=== PATIENT | male | born 1935 | race Caucasian/White ===

== ENCOUNTER 2017-11-24 12:34 | Emergency (ER) | payer OTHER ==
[2017-11-24 13:42] LABS: Absolute Lymphocytes (CBC) 2.1 K/uL (0.7-4.9); Absolute Neutrophil 4.9 K/uL (1.8-8.0); Eosinophils % 2.3 % (0-4.4); Hematocrit 44.4 % (39.6-49.0); Lymphocytes % 25.2 % (15.3-44.8); MCH 29.6 pg (27.0-35.0); MCV 89.8 fL (80-100); MPV 7.9 fL (7.6-11.3); Monocytes % 12.1 % (3.3-12.3); RBC Red Blood Cell Count 4.95 M/uL (4.33-5.43)
[2017-11-24 13:45] LABS: Protime INR 0.98
[2017-11-24 13:56] LABS: CKMB Creatine Kinase MB 2.7 ng/mL (0.3-3.6); Magnesium 2.2 mg/dL (1.8-2.4)
--- NOTE | 2017-11-24 14:03 | RAD REPORT ---
EXAM DESCRIPTION: RAD - Chest Single View - 11/24/2017 1:45 pm CLINICAL HISTORY: Chest pain COMPARISON: None. TECHNIQUE: AP portable chest image was obtained 1334 hours . FINDINGS: No failure, infiltrate or mass. Granulomatous calcifications are present. Heart and vascul ature are normal. No measurable pleural effusion and no pneumothorax. No acute bone finding identifia ble. Shoulder joint degenerative change on the right present and likely reflects chronic rotator cuff tear. No acute aortic findings suspected. IMPRESSION: No acute cardiopulmonary process. Right shoulder degenerative change with probable chronic rotator cuff tear.
--- NOTE | 2017-11-24 14:32 | ER ---
Nurse's Notes [facility] Name: Alondra Rowley Age: 82 yrs Sex: Male : 1935 Arrival Date: 11/24/2017 Time: 12:36 Bed 25 Private MD: JASON GOMEZ Diagnosis: Bradycardia, unspecified Presentation: 11/24 12:53 Presenting complaint: Patient states: I have been having dizzy spells and trouble la1 walking for the last 3 days and [facility] and told me my HR was 41 and I should come be evaluated by the ER. Transition of care: patient was not received from another setting of care. Onset of symptoms was November 24, 2017. Risk Assessment: Do you want to hurt yourself or someone else? Patient reports no desire to harm self or others. Initial Sepsis Screen: Does the patient meet any 2 criteria? No. Patient's initial sepsis screen is negative. Does the patient have a suspected source of infection? No. Patient's initial sepsis screen is negative. Care prior to arrival: None. 12:53 Method Of Arrival: Wheelchair la1 12:53 Acuity: HILARY 3 la1 Historical: - Allergies: 12:55 Iodine; la1 12:55 Wasps; la1 - Home Meds: 13:15 acyclovir 200 mg Oral cap 2 caps 2 times per day [Active]; cyanocobalamin (vitamin aj B-12) 1,000 mcg oral tab daily [Active]; diclofenac sodium 75 mg oral TbEC 1 tab 2 times per day [Active]; gabapentin 400 mg oral cap 1 cap 3 times per day [Active]; triamterene-hydrochlorothiazid 37.5-25 mg Oral tab 1 tab once daily [Active]; levothyroxine 100 mcg tab 1 tab once daily [Active]; lisinopril 10 mg Oral tab 1 tab once daily [Active]; sildenafil oral 50mg oral 1 tab once daily [Active]; - PMHx: 12:55 Hypertension; la1 13:15 Hyperlipidemia; aj - Immunization history:: Adult Immunizations up to date. - Social history:: Smoking status: Patient/guardian denies using tobacco. - Ebola Screening: : No symptoms or risks identified at this time. Screenin:10 Abuse screen: Denies threats or abuse. Denies injuries from another. Nutritional aj screening: No deficits noted. Tuberculosis screening: No symptoms or risk factors identified. Fall Risk None identified. Assessment: 13:10 General: Appears in no apparent distress. comfortable, Behavior is calm, cooperative, aj appropriate for age. Pain: Denies pain. Neuro: Level of Consciousness is awake, alert, obeys commands, Oriented to person, place, time, situation, Appropriate for age. Neuro: Reports dizziness, since for 3 days. Cardiovascular: Reports lightheadedness, Denies chest pain, Capillary refill < 3 seconds in bilateral fingers Patient's skin is warm and dry. Rhythm is sinus bradycardia. Respiratory: Airway is patent Respiratory effort is even, unlabored, Respiratory pattern is regular, symmetrical. Derm: Skin is intact, is healthy with good turgor, Skin is pink, warm \T\ dry. normal. 14:36 Reassessment: Patient appears in no apparent distress at this time. No changes from aj previously documented assessment. Patient and/or family updated on plan of care and expected duration. Pain level reassessed. Patient is alert, oriented x 3, equal unlabored respirations, skin warm/dry/pink. Denies dizziness Patient denies pain at this time. Vital Signs: 12:55 BP 170 / 85; Pulse 49; Resp 16; Temp 97.3(TE); Pulse Ox 99% on R/A; Weight 103.42 kg; la1 Height 6 ft. 1 in. (185.42 cm); 13:42 BP 123 / 88; Pulse 44; Resp 17; Pulse Ox 98% on R/A; aj 14:24 BP 123 / 52 Supine; Pulse 52; Resp 16; Pulse Ox 97% on R/A; tm3 14:24 BP 141 / 76 Sitting; Pulse 46; Resp 16; Pulse Ox 98% on R/A; tm3 14:24 BP 125 / 73 Standing; Pulse 56; Resp 18; Pulse Ox 98% on R/A; tm3 12:55 Body Mass Index 30.08 (103.42 kg, 185.42 cm) la1 ED Course: 12:36 Patient arrived in ED. mr 12:37 [facility], [facility] is Private Physician. mr 12:54 Triage completed. la1 12:55 Arm band placed on right wrist. EKG completed in triage. Results shown to . la1 12:56 Viviane Andino, RN is Primary Nurse. aj 13:08 EKG done, by automotive tire technician. dt2 13:13 Arielle Leong FNP-C is [facility]. kb 13:13 Joe Hogan MD is Attending Physician. kb 13:15 Patient has correct armband on for positive identification. Placed in gown. Bed in low aj position. Call light in reach. Side rails up X 1. Adult w/ patient. stone carriage operator on. Pulse ox on. NIBP on. 13:16 Inserted saline lock: 20 gauge in left forearm, using aseptic technique. Blood aj collected. 13:45 XRAY Chest (1 view) In Process Unspecified. EDMS 14:36 No provider procedures requiring assistance completed. IV discontinued, bleeding aj controlled, No redness/swelling at site. Pressure dressing applied. Administered Medications: No medications were administered Outcome: 14:31 Discharge ordered by MD. kb 14:37 Discharged to home ambulatory, with family. aj 14:37 Condition: good 14:37 Discharge instructions given to patient, family, Instructed on discharge instructions, follow up and referral plans. Demonstrated understanding of instructions, follow-up care. 14:38 Patient left the ED. aj Signatures: Dispatcher [employer] EDTN Arielle Leong FNP-C FNP-Wil Wolfe tm3 Viviane Andino, RN Ethel Sanchez Lee, RN RN la1 Ronit Haley dt2
--- NOTE | 2017-11-24 14:32 | EDPHYS ---
Physician Documentation [facility] Name: Alondra Rowley Age: 82 yrs Sex: Male : 1935 Arrival Date: 11/24/2017 Time: 12:36 Bed 25 Private MD: JASON, [place] ED Physician Joe Hogan HPI: 11/24 13:39 This 82 yrs old Male presents to ER via Wheelchair with complaints of kb Irregular heart rate. 13:39 The patient presents with dizziness. Onset: The symptoms/episode began/occurred 2 kb day(s) ago. Context: occurred at home, occurred while the patient was after taking a medication, just prior to the episode the patient experienced no apparent symptoms. Modifying factors: The symptoms are alleviated by nothing, the symptoms are aggravated by nothing. Associated signs and symptoms: The patient has no apparent associated signs or symptoms. Severity of symptoms: At their worst the symptoms were moderate in the emergency department the symptoms have resolved. Patient's baseline: Neuro: alert and fully oriented, Motor: no deficits, Ambulation: walks without assistance, Speech: normal. The patient has not experienced similar symptoms in the past. The patient has been recently seen by a physician: in [place] clinic, with similar presenting complaints, and was sent to the [facility] Emergency Department for further evaluation. Pt states he got dizzy 2 days ago after taking his blood pressure medication. States he stopped taking one of them and hasn't had dizziness since then (yesterday or today.) [facility] and they told him he needed to be seen in the ER because his heart rate on EKG was 41. Denies chest pain, palpitations, shortness of breath. States he feels fine now, no longer feels jittery. . Historical: - Allergies: 12:55 Iodine; la1 12:55 Wasps; la1 - Home Meds: 13:15 acyclovir 200 mg Oral cap 2 caps 2 times per day [Active]; cyanocobalamin (vitamin aj B-12) 1,000 mcg oral tab daily [Active]; diclofenac sodium 75 mg oral TbEC 1 tab 2 times per day [Active]; gabapentin 400 mg oral cap 1 cap 3 times per day [Active]; triamterene-hydrochlorothiazid 37.5-25 mg Oral tab 1 tab once daily [Active]; levothyroxine 100 mcg tab 1 tab once daily [Active]; lisinopril 10 mg Oral tab 1 tab once daily [Active]; sildenafil oral 50mg oral 1 tab once daily [Active]; - PMHx: 12:55 Hypertension; la1 13:15 Hyperlipidemia; aj - Immunization history:: Adult Immunizations up to date. - Social history:: Smoking status: Patient/guardian denies using tobacco. - Ebola Screening: : No symptoms or risks identified at this time. ROS: 13:36 Constitutional: Negative for fever, chills, and weight loss, Eyes: Negative for injury, kb pain, redness, and discharge, ENT: Negative for injury, pain, and discharge, Neck: Negative for injury, pain, and swelling, Cardiovascular: Negative for chest pain, palpitations, and edema, Respiratory: Negative for shortness of breath, cough, wheezing, and pleuritic chest pain, Abdomen/GI: Negative for abdominal pain, nausea, vomiting, diarrhea, and constipation, Back: Negative for injury and pain, MS/Extremity: Negative for injury and deformity, Skin: Negative for injury, rash, and discoloration, Neuro: Negative for headache, weakness, numbness, tingling, and seizure. Exam: 13:36 Constitutional: This is a well developed, well nourished patient who is awake, alert, kb and in no acute distress. Head/Face: Normocephalic, atraumatic. Chest/axilla: Normal chest wall appearance and motion. Nontender with no deformity. No lesions are appreciated. Respiratory: Lungs have equal breath sounds bilaterally, clear to auscultation and percussion. No rales, rhonchi or wheezes noted. No increased work of breathing, no retractions or nasal flaring. Abdomen/GI: Soft, non-tender, with normal bowel sounds. No distension or tympany. No guarding or rebound. No evidence of tenderness throughout. Skin: Warm, dry with normal turgor. Normal color with no rashes, no lesions, and no evidence of cellulitis. MS/ Extremity: Pulses equal, no cyanosis. Neurovascular intact. Full, normal range of motion. Neuro: Awake and alert, GCS 15, oriented to person, place, time, and situation. Cranial nerves II-XII grossly intact. Motor strength 5/5 in all extremities. Sensory grossly intact. Cerebellar exam normal. Normal gait. 13:36 Cardiovascular: Rate: bradycardic, actual rate is 49 bpm, Rhythm: regular, Pulses: no pulse deficits are appreciated, Heart sounds: normal, normal S1and S2. Vital Signs: 12:55 BP 170 / 85; Pulse 49; Resp 16; Temp 97.3(TE); Pulse Ox 99% on R/A; Weight 103.42 kg; la1 Height 6 ft. 1 in. (185.42 cm); 13:42 BP 123 / 88; Pulse 44; Resp 17; Pulse Ox 98% on R/A; aj 14:24 BP 123 / 52 Supine; Pulse 52; Resp 16; Pulse Ox 97% on R/A; tm3 14:24 BP 141 / 76 Sitting; Pulse 46; Resp 16; Pulse Ox 98% on R/A; tm3 14:24 BP 125 / 73 Standing; Pulse 56; Resp 18; Pulse Ox 98% on R/A; tm3 12:55 Body Mass Index 30.08 (103.42 kg, 185.42 cm) la1 MDM: 13:13 Patient medically screened. kb 13:36 Data reviewed: vital signs, nurses notes. Data interpreted: Pulse oximetry: on room air kb is 99 %. Interpretation: normal. 14:15 Counseling: I had a detailed discussion with the patient and/or guardian regarding: the kb historical points, exam findings, and any diagnostic results supporting the discharge/admit diagnosis, lab results, radiology results, the need for outpatient follow up, a pharmacist assistant, a family practitioner, to return to the emergency department if symptoms worsen or persist or if there are any questions or concerns that arise at home. Special discussion: Based on the patient's history, exam, and Dx evaluation, there is no indication for emergent intervention or inpatient Tx. It is understood by the patient/guardian that if the Sx's persist or worsen they need to return immediately for re-evaluation. ED course: Discussed pt condition, history and diagnostic studies with ERP. Pt is asymptomatic of heart rate, stable blood pressure. Pt would like to go home. Will follow up with pharmacist assistant. Educated to return for chest pain, shortness of breath, palpitations, weakness, dizziness, lightheadedness, or any other concerns. . 11/24 13:15 Order name: Basic Metabolic Panel; Complete Time: 13:57 kb 11/24 13:15 Order name: CBC with Diff; Complete Time: 13:43 kb 11/24 13:15 Order name: Ckmb; Complete Time: 13:57 kb 11/24 13:15 Order name: CPK; Complete Time: 13:57 kb 11/24 13:15 Order name: Magnesium; Complete Time: 13:57 kb 11/24 13:15 Order name: NT PRO-BNP; Complete Time: 13:57 kb 11/24 13:15 Order name: PT-INR; Complete Time: 13:57 kb 11/24 13:15 Order name: Ptt, Activated; Complete Time: 13:57 kb 11/24 13:15 Order name: Troponin (emerg Dept Use Only); Complete Time: 14:07 kb 11/24 13:15 Order name: XRAY Chest (1 view); Complete Time: 14:07 kb 11/24 13:15 Order name: EKG; Complete Time: 13:15 kb 11/24 13:15 Order name: Cardiac monitoring; Complete Time: 13:16 kb 11/24 14:04 Order name: Urine Dipstick--Ancillary (enter results) ag 11/24 14:05 Order name: Urine Dipstick-Ancillary EDMS 11/24 13:15 Order name: EKG - Nurse/Tech; Complete Time: 13:16 kb 11/24 13:15 Order name: IV Saline Lock; Complete Time: 13:16 kb 11/24 13:15 Order name: Labs collected and sent; Complete Time: 13:16 kb 11/24 13:15 Order name: O2 Per Protocol; Complete Time: 13:16 kb 11/24 13:15 Order name: O2 Sat Monitoring; Complete Time: 13:16 kb 11/24 13:15 Order name: Urine Dipstick-Ancillary (obtain specimen); Complete Time: 14:33 kb 11/24 14:11 Order name: Orthostatics; Complete Time: 14:24 kb Administered Medications: No medications were administered Disposition: 11/24/17 14:31 Discharged to Home. Impression: Bradycardia, unspecified. - Condition is Stable. - Discharge Instructions: Bradycardia, Adult. - Medication Reconciliation Form, Thank You Letter, Antibiotic Education, Prescription Opioid Use form. - Follow up: Emergency Department; When: As needed; Reason: Worsening of condition. Follow up: Private Physician; When: 2 - 3 days; Reason: Recheck today's complaints, Continuance of care, Re-evaluation by your physician. Addendum: 11/25/2017 16:07 Co-signature as Attending Physician, Joe Hogan MD. g s Signatures: Dispatcher [employer] EDMS SaloTitoArielle, SHEETFED PRESS OPERATOR-C SHEETFED PRESS OPERATOR-Ckb Viviane Andino RN Emerson Douglas RN RN la1 Joe Hogan MD MD Corrections: (The following items were deleted from the chart) 11/24 14:38 14:31 11/24/2017 14:31 Discharged to Home. Impression: Bradycardia, unspecified. aj Condition is Stable. Forms are Medication Reconciliation Form, Thank You Letter, Antibiotic Education, Prescription Opioid Use. Follow up: Emergency Department; When: As needed; Reason: Worsening of condition. Follow up: Private Physician; When: 2 - 3 days; Reason: Recheck today's complaints, Continuance of care, Re-evaluation by your physician. kb
[2017-11-24 14:47] LABS: Urine Blood TRACE (NEG); Urine Glucose NEGATIVE (NEG); Urine Protein NEGATIVE (NEG); Urine Specific Gravity 1.015 (1.005-1.030)
--- NOTE | 2017-11-24 17:12 | EKG ---
Test Date: 2017-11-24 Test Time: 12:50:04 Framing Mill Operator Helper: TAY MEASUREMENT RESULTS: Intervals: Rate: 45 AZ: 232 QRSD: 86 QT: 432 QTc: 373 Vendor: P: 68 AZ: 232 QRS: 19 T: 78 INTERPRETIVE STATEMENTS: Marked sinus bradycardia with 1st degree AV block Abnormal ECG No previous ECG available for comparison Electronically Signed On 11-24-17 17:10:47 CDT by Jason Thao
== END 2017-11-24 14:38 | disposition home or self-care (01) ==
LOC: ER 12:34
DX: R00.1 Bradycardia, unspecified (principal); I10 Essential (primary) hypertension; E78.5 Hyperlipidemia, unspecified; Z91.038 Other insect allergy status; Z91.048 Other nonmedicinal substance allergy status
CPT/HCPCS: 36415; 71045; 80048; 81003; 82550; 82553; 83735; 83880; 84484; 85025; 85610; 85730; 93005; 99284

== ENCOUNTER 2017-11-27 09:38 | Emergency (ER) | payer OTHER ==
[2017-11-27] MEDS ORDERED: NA CHLORIDE 0.9% 1,000 ML ONE (10:45)
[2017-11-27] MEDS ORDERED: ASPIRIN 81 MG CHEWABLE TABLET ONE (10:45)
[2017-11-27 11:05] LABS: Protime INR 0.97
[2017-11-27 11:09] LABS: Absolute Lymphocytes (CBC) 1.5 K/uL (0.7-4.9); Absolute Monocytes 0.8 K/uL (0.1-1.3); Absolute Neutrophil 4.8 K/uL (1.8-8.0); Basophils % 1.2 % (0-1.3); Eosinophils % 2.1 % (0-4.4); Hematocrit 43.4 % (39.6-49.0); Lymphocytes % 20.2 % (15.3-44.8); MCH 30.3 pg (27.0-35.0); MCV 89.4 fL (80-100); MPV 8.3 fL (7.6-11.3); Monocytes % 11.3 % (3.3-12.3); RBC Red Blood Cell Count 4.86 M/uL (4.33-5.43)
[2017-11-27 11:25] LABS: Albumin 3.8 g/dL (3.4-5.0); Bilirubin Direct 0.1 mg/dL (0-0.2); Bilirubin Total 0.5 mg/dL (0.2-1.0); CKMB Creatine Kinase MB 2.6 ng/mL (0.3-3.6); Potassium 3.8 mmol/L (3.5-5.1); Thyroid Stimulating Hormone 3.49 uIU/mL (0.36-3.74)
--- NOTE | 2017-11-27 11:28 | EKG ---
Test Date: 2017-11-27 Test Time: 09:47:28 Human Resource Officer: TAY MEASUREMENT RESULTS: Intervals: Rate: 52 OK: 220 QRSD: 86 QT: 424 QTc: 394 Edna: P: 67 OK: 220 QRS: 0 T: 75 INTERPRETIVE STATEMENTS: Sinus bradycardia with 1st degree AV block Inferior infarct, age undetermined Abnormal ECG Compared to ECG 11/24/2017 12:50:04 Myocardial infarct finding now present Electronically Signed On 11-27-17 11:28:05 CDT by Travis Beavers
--- NOTE | 2017-11-27 11:32 | RAD REPORT ---
EXAM DESCRIPTION: RAD - Chest Single View - 11/27/2017 11:04 am CLINICAL HISTORY: CHEST PAIN Chest pain. COMPARISON: Chest Single View dated 11/24/2017 FINDINGS: Portable technique limits examination quality. Calcified granulomas are present left mid lung. The lungs are otherwise clear. The heart is normal in size. No displaced fractures. IMPRESSION: No acute intrathoracic process suspected.
[2017-11-27 12:10] LABS: Urine Blood NEGATIVE (NEG); Urine Glucose NEGATIVE (NEG); Urine Protein NEGATIVE (NEG)
--- NOTE | 2017-11-27 12:54 | EDPHYS ---
Physician Documentation [facility] Name: Alondra Rowley Age: 82 yrs Sex: Male : 1935 Arrival Date: 11/27/2017 Time: 09:42 Bed 23 Private MD: [place], [place] ED Physician Vincenzo Mcmahon HPI: 11/27 10:31 This 82 yrs old Male presents to ER via Ambulatory with complaints of samreen Weakness, Dizziness. 10:31 The patient presents to the emergency department with weakness of the. samreen Historical: - Allergies: 09:47 Iodine; ch 09:47 Wasps; ch - Home Meds: 09:47 acyclovir 200 mg Oral cap 2 caps 2 times per day [Active]; cyanocobalamin (vitamin ch B-12) 1,000 mcg Oral tab daily [Active]; diclofenac sodium 75 mg Oral TbEC 1 tab 2 times per day [Active]; gabapentin 400 mg Oral cap 1 cap 3 times per day [Active]; levothyroxine 100 mcg tab 1 tab once daily [Active]; lisinopril 10 mg Oral tab 1 tab once daily [Active]; sildenafil 50mg Oral 1 tab once daily [Active]; triamterene-hydrochlorothiazid 37.5-25 mg Oral tab 1 tab once daily [Active]; - PMHx: 09:47 Hyperlipidemia; Hypertension; neck pain; ch - PSHx: 09:47 back; 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 - Social history:: Smoking status: Patient/guardian denies using tobacco, Patient/guardian denies using alcohol, street drugs. - Ebola Screening: : Patient negative for fever greater than or equal to 101.5 degrees Fahrenheit, and additional compatible Ebola Virus Disease symptoms Patient denies exposure to infectious person Patient denies travel to an Ebola-affected area in the 21 days before illness onset No symptoms or risks identified at this time. ROS: 10:32 Constitutional: Negative for fever, chills, and weight loss, Eyes: Negative for injury, samreen pain, redness, and discharge, ENT: Negative for injury, pain, and discharge, Neck: Negative for injury, pain, and swelling, Respiratory: Negative for shortness of breath, cough, wheezing, and pleuritic chest pain, Abdomen/GI: Negative for abdominal pain, nausea, vomiting, diarrhea, and constipation, Back: Negative for injury and pain, : Negative for injury, bleeding, discharge, and swelling, MS/Extremity: Negative for injury and deformity, Skin: Negative for injury, rash, and discoloration, Neuro: Negative for headache, weakness, numbness, tingling, and seizure, Psych: Negative for depression, anxiety, suicide ideation, homicidal ideation, and hallucinations, Allergy/Immunology: Negative for hives, rash, and allergies, Endocrine: Negative for neck swelling, polydipsia, polyuria, polyphagia, and marked weight changes, Hematologic/Lymphatic: Negative for swollen nodes, abnormal bleeding, and unusual bruising. 10:32 Cardiovascular: Positive for palpitations. 10:32 Neuro: Positive for dizziness. Exam: 10:44 Constitutional: This is a well developed, well nourished patient who is awake, alert, samreen and in no acute distress. Head/Face: Normocephalic, atraumatic. Eyes: Pupils equal round and reactive to light, extra-ocular motions intact. Lids and lashes normal. Conjunctiva and sclera are non-icteric and not injected. Cornea within normal limits. Periorbital areas with no swelling, redness, or edema. ENT: Nares patent. No nasal discharge, no septal abnormalities noted. Tympanic membranes are normal and external auditory canals are clear. Oropharynx with no redness, swelling, or masses, exudates, or evidence of obstruction, uvula midline. Mucous membranes moist. Neck: Trachea midline, no thyromegaly or masses palpated, and no cervical lymphadenopathy. Supple, full range of motion without nuchal rigidity, or vertebral point tenderness. No Meningismus. Chest/axilla: Normal chest wall appearance and motion. Nontender with no deformity. No lesions are appreciated. Respiratory: Lungs have equal breath sounds bilaterally, clear to auscultation and percussion. No rales, rhonchi or wheezes noted. No increased work of breathing, no retractions or nasal flaring. Abdomen/GI: Soft, non-tender, with normal bowel sounds. No distension or tympany. No guarding or rebound. No evidence of tenderness throughout. Back: No spinal tenderness. No costovertebral tenderness. Full range of motion. Male : Normal genitalia with no discharge or lesions. Skin: Warm, dry with normal turgor. Normal color with no rashes, no lesions, and no evidence of cellulitis. MS/ Extremity: Pulses equal, no cyanosis. Neurovascular intact. Full, normal range of motion. Neuro: Awake and alert, GCS 15, oriented to person, place, time, and situation. Cranial nerves II-XII grossly intact. Motor strength 5/5 in all extremities. Sensory grossly intact. Cerebellar exam normal. Normal gait. Psych: Awake, alert, with orientation to person, place and time. Behavior, mood, and affect are within normal limits. 10:44 Cardiovascular: Rate: bradycardic, Rhythm: regular, Pulses: Pulses are 4+ in bilateral radial, brachial, femoral, popliteal, posterior tibial and and dorsalis pedis arteries.. Heart sounds: normal, Edema: is not appreciated, JVD: is not appreciated. Vital Signs: 09:47 BP 137 / 82; Pulse 54; Resp 20; Temp 97.5; Pulse Ox 97% on R/A; Weight 103.42 kg; ch Height 6 ft. 1 in. (185.42 cm); Pain 5/10; 10:16 BP 139 / 76; Pulse 51; Resp 16; Pulse Ox 97% on R/A; Pain 5/10; ss 12:06 BP 117 / 84; Pulse 50; Resp 16; Pulse Ox 98% on R/A; Pain 0/10; ss 12:45 BP 114 / 79 Supine; Pulse 50; ss 12:45 BP 123 / 80 Sitting; Pulse 46; ss 12:45 BP 125 / 72 Standing; Pulse 52; ss 13:30 BP 118 / 80; Pulse 50; Resp 17; Pulse Ox 97% on R/A; kr2 09:47 Body Mass Index 30.08 (103.42 kg, 185.42 cm) Shantal Coma Score: 10:16 Eye Response: spontaneous(4). Verbal Response: oriented(5). Motor Response: obeys ss commands(6). Total: 15. MDM: 10:15 Patient medically screened. [facility] 11/27 10:07 Order name: Glucose, Ancillary Testing; Complete Time: 12:35 EDMS 11/27 10:31 Order name: Basic Metabolic Panel; Complete Time: 12:35 [facility] 11/27 10:31 Order name: CBC with Diff; Complete Time: 12:35 [facility] 11/27 10:31 Order name: Ckmb; Complete Time: 12:35 [facility] 11/27 10:31 Order name: CPK; Complete Time: 12:35 [facility] 11/27 10:31 Order name: LFT's; Complete Time: 12:35 [facility] 11/27 10:31 Order name: Magnesium; Complete Time: 12:35 [facility] 11/27 10:31 Order name: NT PRO-BNP; Complete Time: 12:35 [facility] 11/27 10:31 Order name: PT-INR; Complete Time: 12:35 [facility] 11/27 10:31 Order name: Ptt, Activated; Complete Time: 12:35 [facility] 11/27 10:31 Order name: Troponin (emerg Dept Use Only); Complete Time: 12:35 [facility] 11/27 10:31 Order name: TSH; Complete Time: 12:35 [facility] 11/27 10:31 Order name: Urine Culture 11/27 11:27 Order name: Urine Dipstick--Ancillary (enter results); Complete Time: 12:35 11/27 09:53 Order name: Blood Glucose Level; Complete Time: 10:15 11/27 09:53 Order name: EKG; Complete Time: 09:53 11/27 09:53 Order name: EKG - Nurse/Tech; Complete Time: 10:15 11/27 10:31 Order name: XRAY Chest (1 view); Complete Time: 12:35 [facility] 11/27 10:31 Order name: Cardiac monitoring; Complete Time: 10:33 [facility] 11/27 10:31 Order name: IV Saline Lock; Complete Time: 10:33 [facility] 11/27 10:31 Order name: Labs collected and sent; Complete Time: 10:33 [facility] 11/27 10:31 Order name: O2 Per Protocol; Complete Time: 10:33 [facility] 11/27 10:31 Order name: O2 Sat Monitoring; Complete Time: 10:33 [facility] 11/27 10:31 Order name: Urine Dipstick-Ancillary (obtain specimen); Complete Time: 11:05 [facility] 11/27 12:36 Order name: Orthostatics; Complete Time: 12:45 [facility] Administered Medications: 10:43 Drug: NS 0.9% 1000 ml Route: IV; Rate: 125 ml/hr; Site: right antecubital; ss 10:43 Drug: Aspirin 162 mg Route: PO; ss 12:07 Follow up: Response: No adverse reaction Point of Care Testing: Blood Glucose: 09:47 Blood Glucose: 99 mg/dL; Ranges: Critical Glucose Levels:Adult <50 mg/dl or >400 mg/dl <40 mg/dl or >180 mg/dl Disposition: 11/27/17 12:54 Discharged to Home. Impression: Dizziness and giddiness, Bradycardia, unspecified. - Condition is Stable. - Discharge Instructions: Bradycardia, Adult, Dizziness, Fall Prevention in the Home, Fall Prevention in the Home, [id number], Aspirin and Your Heart, Dizziness, [id number]. - Medication Reconciliation Form, Thank You Letter, Antibiotic Education, Prescription Opioid Use form. - [facility] [place]; When: 2 - 3 days; Reason: Recheck today's complaints, Continuance of care, Re-evaluation by your physician. Follow up: Travis Beavers MD; When: 2 - 3 days; Reason: Recheck today's complaints, Re-evaluation by your physician. Signatures: Dispatcher [employer] EDAnaya Garcia, GARY RN Vincenzo Vicente MD MD cha Smirch, Shelby, RN RN ss Kait Rose RN RN kr2 Corrections: (The following items were deleted from the chart) 13:47 12:54 11/27/2017 12:54 Discharged to Home. Impression: Dizziness and giddiness; kr2 Bradycardia, unspecified. Condition is Stable. Forms are Medication Reconciliation Form, Thank You Letter, Antibiotic Education, Prescription Opioid Use. Follow up: [facility]; When: 2 - 3 days; Reason: Recheck today's complaints, Continuance of care, Re-evaluation by your physician. Follow up: Travis Beavers; When: 2 - 3 days; Reason: Recheck today's complaints, Re-evaluation by your physician. samreen
--- NOTE | 2017-11-27 12:54 | ER ---
Nurse's Notes [facility] Name: Alondra Rowley Age: 82 yrs Sex: Male : 1935 Arrival Date: 11/27/2017 Time: 09:42 Bed 23 Private MD: JASON GOMEZ Diagnosis: Dizziness and giddiness;Bradycardia, unspecified Presentation: 11/27 09:45 Presenting complaint: Patient states: light headed and dizzyness for almost a week. [facility]. Transition of care: patient was not received from another setting of care. No acute neurological deficit is noted. Onset of symptoms was November 20, 2017. Risk Assessment: Do you want to hurt yourself or someone else? Patient reports no desire to harm self or others. Initial Sepsis Screen: Does the patient meet any 2 criteria? No. Patient's initial sepsis screen is negative. Does the patient have a suspected source of infection? No. Patient's initial sepsis screen is negative. Care prior to arrival: None. 09:45 Method Of Arrival: Ambulatory 09:45 Acuity: HILARY 3 Triage Assessment: 09:47 The onset of the patients symptoms was November 20, 2017 at 08:00. General: Appears in no ch apparent distress. comfortable, Behavior is calm, cooperative, appropriate for age. Pain: Denies pain. Neuro: Level of Consciousness is awake, alert, obeys commands, Oriented to person, place, time, situation, Reports weakness. Stroke Activation: Symptom onset > 6 hours Physician: Stroke Attending; Name: ; Notified At: ; Arrived At: Physician: Chief Stroke Resident; Name: ; Notified At: ; Arrived At: Physician: Stroke Resident; Name: ; Notified At: ; Arrived At: Physician: ED Attending; Name: ; Notified At: ; Arrived At: Physician: ED Resident; Name: ; Notified At: ; Arrived At: Historical: - Allergies: 09:47 Iodine; ch 09:47 Wasps; - Home Meds: :47 acyclovir 200 mg Oral cap 2 caps 2 times per day [Active]; cyanocobalamin (vitamin ch B-12) 1,000 mcg Oral tab daily [Active]; diclofenac sodium 75 mg Oral TbEC 1 tab 2 times per day [Active]; gabapentin 400 mg Oral cap 1 cap 3 times per day [Active]; levothyroxine 100 mcg tab 1 tab once daily [Active]; lisinopril 10 mg Oral tab 1 tab once daily [Active]; sildenafil 50mg Oral 1 tab once daily [Active]; triamterene-hydrochlorothiazid 37.5-25 mg Oral tab 1 tab once daily [Active]; - PMHx: 09:47 Hyperlipidemia; Hypertension; neck pain; ch - PSHx: 09:47 back; 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 - Social history:: Smoking status: Patient/guardian denies using tobacco, Patient/guardian denies using alcohol, street drugs. - Ebola Screening: : Patient negative for fever greater than or equal to 101.5 degrees Fahrenheit, and additional compatible Ebola Virus Disease symptoms Patient denies exposure to infectious person Patient denies travel to an Ebola-affected area in the 21 days before illness onset No symptoms or risks identified at this time. Screenin:16 Abuse screen: Denies threats or abuse. Denies injuries from another. Nutritional ss screening: No deficits noted. Tuberculosis screening: Never had TB. Fall Risk None identified. Assessment: 10:16 General: Appears in no apparent distress. comfortable, Behavior is calm, cooperative, ss Reports fatigue for x 1 week is intermittent. Denies fever, feeling ill, chills. Pain: Complains of pain in lumbar area, left low back and right low back Pain currently is 5 out of 10 on a pain scale. Quality of pain is described as aching, Is continuous, chronic. Neuro: Level of Consciousness is awake, alert, obeys commands, Oriented to person, place, time, situation, Litigation Partner are equal bilaterally Moves all extremities. Full function Gait is Speech is normal, Facial symmetry appears normal, Pupils are PERRLA. Cardiovascular: Reports since intermittent dizziness and lightheartedness x 1 week. Pt states, "I was seen here [facility] for [facility], and they said everything looked good to and to follow up with my doctor. [facility] and [facility] told me since I was still having dizziness that I should come to the ER before I have a cardiac arrest." Denies chest pain, nausea, shortness of breath, Heart tones S1 S2 present Capillary refill < 3 seconds is brisk in bilateral fingers Pulses are palpable in right radial artery, right dorsalis pedis artery, left radial artery and left dorsalis pedis artery Rhythm is sinus bradycardia. Respiratory: Airway is patent Respiratory effort is even, unlabored, Respiratory pattern is regular, symmetrical, Breath sounds are clear bilaterally. Denies cough, shortness of breath pain with respiration, pain with cough, pain with movement. GI: Abdomen is non-distended, Patient currently denies abdominal pain, diarrhea, nausea, vomiting. : No signs and/or symptoms were reported regarding the genitourinary system. EENT: Nares are clear Oral mucosa is moist. Throat is clear. Derm: Skin is intact, is healthy with good turgor, Skin is dry, Skin is pink, warm \\T\\ dry. normal, Skin temperature is warm. Musculoskeletal: Circulation, motion, and sensation intact. Range of motion: intact in all extremities, Swelling absent. 12:06 Reassessment: Patient appears in no apparent distress at this time. Patient and/or ss family updated on plan of care and expected duration. Pain level reassessed. Patient is alert, oriented x 3, equal unlabored respirations, skin warm/dry/pink. awaiting disposition, at bedside. Call light remains within reach. Vital Signs: 09:47 BP 137 / 82; Pulse 54; Resp 20; Temp 97.5; Pulse Ox 97% on R/A; Weight 103.42 kg; ch Height 6 ft. 1 in. (185.42 cm); Pain 5/10; 10:16 BP 139 / 76; Pulse 51; Resp 16; Pulse Ox 97% on R/A; Pain 5/10; ss 12:06 BP 117 / 84; Pulse 50; Resp 16; Pulse Ox 98% on R/A; Pain 0/10; ss 12:45 BP 114 / 79 Supine; Pulse 50; ss 12:45 BP 123 / 80 Sitting; Pulse 46; ss 12:45 BP 125 / 72 Standing; Pulse 52; ss 13:30 BP 118 / 80; Pulse 50; Resp 17; Pulse Ox 97% on R/A; kr2 09:47 Body Mass Index 30.08 (103.42 kg, 185.42 cm) ch Shantal Coma Score: 10:16 Eye Response: spontaneous(4). Verbal Response: oriented(5). Motor Response: obeys ss commands(6). Total: 15. ED Course: 09:42 Patient arrived in ED. sb2 09:42 [facility]. sb2 09:46 Triage completed. 09:47 Arm band placed on left wrist. Patient placed in waiting room. ch 10:05 EKG done, by electronics warfare technician. reviewed by Benjie Taylor MD. at1 10:15 Vincenzo Mcmahon MD is Attending Physician. samreen 10:15 Katy Carroll, GARY is Primary Nurse. ss 10:16 Patient has correct armband on for positive identification. Bed in low position. Call ss light in reach. Side rails up X 1. truck switcher on. Pulse ox on. NIBP on. Warm blanket given. 10:30 Inserted saline lock: 20 gauge in right antecubital area, using aseptic technique. ss Blood collected. 10:54 X-ray completed. Portable x-ray completed in exam room. Patient tolerated procedure jb2 well. 11:00 Urine collected: clean catch specimen, clear, matthew colored. jp3 11:04 XRAY Chest (1 view) In Process Unspecified. EDMS 11:28 Urine Dipstick--Ancillary (enter results) Sent. jp3 12:53 [facility] 12:53 Travis Beavers MD is Referral Physician. samreen 13:40 No provider procedures requiring assistance completed. IV discontinued, intact, kr2 bleeding controlled, No redness/swelling at site. Pressure dressing applied. Administered Medications: 10:43 Drug: NS 0.9% 1000 ml Route: IV; Rate: 125 ml/hr; Site: right antecubital; ss 10:43 Drug: Aspirin 162 mg Route: PO; ss 12:07 Follow up: Response: No adverse reaction Point of Care Testing: Blood Glucose: 09:47 Blood Glucose: 99 mg/dL; Ranges: Outcome: 12:54 Discharge ordered by . samreen 13:45 Discharged to home ambulatory, with family. kr2 13:45 Condition: good 13:45 Discharge instructions given to patient, Instructed on discharge instructions, follow up and referral plans. Demonstrated understanding of instructions, follow-up care, Prescriptions given X 1. 13:47 Patient left the ED. kr2 Signatures: Dispatcher [employer] EDMS Anaya Heurta RN RN Vincenzo Mcmahon MD MD cha Buechter, Jesse jb2 Katy Carroll RN RN ss Viviane hurtado, section supervisor EKG Tat1 Kait Rose RN RN kr2 Lillian Leon sb2 Girma Felder jp3
== END 2017-11-27 13:47 | disposition home or self-care (01) ==
LOC: ER 09:38
DX: R00.1 Bradycardia, unspecified (principal); I10 Essential (primary) hypertension; E78.5 Hyperlipidemia, unspecified; Z91.038 Other insect allergy status; Z91.048 Other nonmedicinal substance allergy status
CPT/HCPCS: 36415; 71045; 80048; 80076; 81003; 82550; 82553; 82962; 83735; 83880; 84443; 84484; 85025; 85610; 85730; 87086; 87088; 93005; 99285; J7030

== ENCOUNTER 2017-12-06 12:12 | Emergency (ER) | payer OTHER ==
--- NOTE | 2017-12-06 13:30 | RAD REPORT ---
EXAM DESCRIPTION: RAD - Chest Single View - 12/06/2017 1:04 pm CLINICAL HISTORY: PALPITATIONS<Reason For Exam>PALPITATIONS Patient also complains of left-sided back and chest pain with history of dilated aorta COMPARISON: Chest Single View dated 11/27/2017; Chest Single View dated 11/24/2017<Comparisons> TECHNIQUE: AP portable chest image was obtained 1255 hours . FINDINGS: No pulmonary edema, mass or focal infiltrate. Lung markings are mildly prominent but stabl e. Granulomatous calcifications are present and stable. Mediastinum is distorted by rotation. Heart a nd vasculature are normal. No measurable pleural effusion and no pneumothorax. No gross bony abnormal ity seen. Aorta does not appear dilated. IMPRESSION: No acute cardiopulmonary process. Chest findings are not significantly different from November 27.
[2017-12-06 13:34] LABS: Protime INR 0.96
[2017-12-06 13:38] LABS: Absolute Lymphocytes (CBC) 1.5 K/uL (0.7-4.9); Absolute Monocytes 0.9 K/uL (0.1-1.3); Absolute Neutrophil 4.7 K/uL (1.8-8.0); Basophils % 1.5 % (0-1.3); Eosinophils % 1.9 % (0-4.4); Hematocrit 41.4 % (39.6-49.0); MCV 89.1 fL (80-100); Monocytes % 11.8 % (3.3-12.3); RBC Red Blood Cell Count 4.64 M/uL (4.33-5.43)
[2017-12-06 14:05] LABS: Albumin 3.9 g/dL (3.4-5.0); Bilirubin Direct 0.1 mg/dL (0-0.2); Bilirubin Total 0.5 mg/dL (0.2-1.0); CKMB Creatine Kinase MB 2.7 ng/mL (0.3-3.6); Magnesium 2.1 mg/dL (1.8-2.4); Potassium 4.3 mmol/L (3.5-5.1); Protein, Total 6.9 g/dL (6.4-8.2)
--- NOTE | 2017-12-06 15:07 | RAD REPORT ---
EXAM DESCRIPTION: CT - Thorax Wo Con - 12/06/2017 2:45 pm CLINICAL HISTORY: Back pain<Reason For Exam>Back pain Left-sided back pain, palpitations, history of bradycardia COMPARISON: Chest Single View dated 12/06/2017<Comparisons> TECHNIQUE: Axial 5 mm thick images of the chest were obtained without IV contrast. All CT scans are performed using dose optimization technique as appropriate and may include automated exposure control or mA/KV adjustment according to patient size. FINDINGS: No mass or infiltrate in the lung parenchyma. No pleural thickening or pleural effusion. N o pneumothorax. A few granulomatous calcifications are present in the lung parenchyma. Minimal calcif ied pleural changes posterior lower right lung field. No abnormal mediastinal or hilar masses or lymphadenopathy seen. Granulomatous calcifications are see n at the left hilum. No pericardial thickening or effusion. No chest wall mass or abnormal axillary lymphadenopathy. IMPRESSION: Negative non-contrast CT chest examination for acute or significant finding.
--- NOTE | 2017-12-06 15:24 | EDPHYS ---
Physician Documentation [facility] Name: Alondra Rowley Age: 82 yrs Sex: Male : 1935 Arrival Date: 12/06/2017 Time: 12:12 Bed 27 Private MD: ED Physician Marvin Ch HPI: 12/06 13:00 This 82 yrs old Male presents to ER via EMS with complaints of Palpitations, pm1 Back Pain. 13:00 The patient presents with a history of irregular heart beat. Context: The symptoms pm1 occur at rest. Onset: The symptoms/episode began/occurred 2 day(s) ago. Duration: The patient or guardian reports multiple episodes, that have now resolved. Modifying factors: The symptoms are aggravated by nothing. The symptoms are alleviated by nothing. Associated signs and symptoms: Pertinent negatives: chest pain, cough, fever, SOB. Severity of symptoms: in the emergency department the symptoms have resolved. The patient has experienced similar episodes in the past, a few times. The patient has been recently seen by a physician: the patient's primary care provider, with similar presenting complaints, and was sent to the [facility] Patient with palpitations this AM that resolved. Patient with left middle back back pain for 2 days. [facility], and was sent to the emergency department for evaluation. Patient without any chest pain, shortness of breath, or dizziness. Historical: - Allergies: 12:23 Iodine; iw 12:23 Wasps; iw - Home Meds: 12:32 acyclovir 200 mg Oral cap 2 caps 2 times per day [Active]; cyanocobalamin (vitamin aj1 B-12) 1,000 mcg Oral tab daily [Active]; diclofenac sodium 75 mg Oral TbEC 1 tab 2 times per day [Active]; gabapentin 400 mg Oral cap 1 cap 3 times per day [Active]; triamterene-hydrochlorothiazid 37.5-25 mg Oral tab 1 tab once daily [Active]; levothyroxine 100 mcg tab 1 tab once daily [Active]; sildenafil 50mg Oral 1 tab once daily [Active]; simvastatin 20 mg Oral tab 1 tab once daily [Active]; ascorbic acid (vitamin C) 500 mg TbER daily [Active]; methylprednisolone 4 mg Oral DsPk [Active]; Vitamin D3 3000 units oral tab daily [Active]; - PMHx: 12:23 Hyperlipidemia; Hypertension; neck pain; iw 12:32 bradycardia; vitamin b12 deficiency; carpal tunnel; seborrhetic dermatitis; lumbar aj1 radiculopathy; lumbosacral spondylosis; right inguinal hernia; low back pain; rosacea; arthralgia; varicose veins; osteoarthritis; familial hypoalipopprotienemia; Hypothyroidism; - PSHx: 12:23 back; fatty tumor removed from back of neck.; iw - Immunization history:: Flu vaccine is up to date. - Ebola Screening: : No symptoms or risks identified at this time. ROS: 13:00 Constitutional: Negative for fever, chills, and weight loss, Eyes: Negative for injury, pm1 pain, redness, and discharge, ENT: Negative for injury, pain, and discharge, Neck: Negative for injury, pain, and swelling. 13:00 Respiratory: Negative for shortness of breath, cough, wheezing, and pleuritic chest pain, Abdomen/GI: Negative for abdominal pain, nausea, vomiting, diarrhea, and constipation, : Negative for injury, bleeding, discharge, and swelling, MS/Extremity: Negative for injury and deformity, Skin: Negative for injury, rash, and discoloration. 13:00 Neuro: Negative for headache, weakness, numbness, tingling, and seizure. 13:00 Cardiovascular: Positive for palpitations, Negative for chest pain, edema, orthopnea. 13:00 Back: Positive for of the left subscapular area, Negative for decreased range of motion. Exam: 13:00 Constitutional: This is a well developed, well nourished patient who is awake, alert, pm1 and in no acute distress. Head/Face: Normocephalic, atraumatic. Eyes: Pupils equal round and reactive to light, extra-ocular motions intact. Lids and lashes normal. Conjunctiva and sclera are non-icteric and not injected. Cornea within normal limits. Periorbital areas with no swelling, redness, or edema. ENT: Nares patent. No nasal discharge, no septal abnormalities noted. Tympanic membranes are normal and external auditory canals are clear. Oropharynx with no redness, swelling, or masses, exudates, or evidence of obstruction, uvula midline. Mucous membranes moist. Neck: Trachea midline, no thyromegaly or masses palpated, and no cervical lymphadenopathy. Supple, full range of motion without nuchal rigidity, or vertebral point tenderness. No Meningismus. Chest/axilla: Normal chest wall appearance and motion. Nontender with no deformity. No lesions are appreciated. Cardiovascular: Regular rate and rhythm with a normal S1 and S2. No gallops, murmurs, or rubs. Normal PMI, no JVD. No pulse deficits. Respiratory: Lungs have equal breath sounds bilaterally, clear to auscultation and percussion. No rales, rhonchi or wheezes noted. No increased work of breathing, no retractions or nasal flaring. Abdomen/GI: Soft, non-tender, with normal bowel sounds. No distension or tympany. No guarding or rebound. No evidence of tenderness throughout. 13:00 Skin: Warm, dry with normal turgor. Normal color with no rashes, no lesions, and no evidence of cellulitis. MS/ Extremity: Pulses equal, no cyanosis. Neurovascular intact. Full, normal range of motion. 13:00 Back: ROM is normal, normal spinal alignment noted, vertebral tenderness, is not appreciated, muscle spasm, is appreciated in the left subscapular area. 13:00 Neuro: Orientation: is normal, Motor: is normal, moves all fours, Sensation: is normal, no obvious gross deficits. Vital Signs: 12:20 BP 135 / 76; Pulse 50; Resp 14; Temp 97.6(O); Pulse Ox 99% on R/A; Weight 102.06 kg [facility] (R); Height 6 ft. 1 in. (185.42 cm) (R); Pain 4/10; 13:15 BP 117 / 80; Pulse 47; Resp 20; Pulse Ox 97% on R/A; aj1 14:49 BP 150 / 76; Pulse 51; Resp 20; Pulse Ox 100% on R/A; aj1 15:43 BP 127 / 65; Pulse 52; Resp 18; Pulse Ox 99% ; aj1 12:20 Body Mass Index 29.69 (102.06 kg, 185.42 cm) [facility] MDM: 12:17 Patient medically screened. pm1 15:23 Data reviewed: vital signs. Data interpreted: Pulse oximetry: on room air is 100 %. pm1 Interpretation: normal. Counseling: I had a detailed discussion with the patient and/or guardian regarding: the historical points, exam findings, and any diagnostic results supporting the discharge/admit diagnosis, lab results, radiology results, the need for outpatient follow up, to return to the emergency department if symptoms worsen or persist or if there are any questions or concerns that arise at home. 12/06 12:36 Order name: Basic Metabolic Panel pm1 12/06 12:36 Order name: CBC with Diff; Complete Time: 13:47 pm12/06 12:36 Order name: Ckmb; Complete Time: 14:16 pm1 12/06 12:36 Order name: CPK; Complete Time: 14:16 pm12/06 12:36 Order name: LFT's; Complete Time: 14:16 pm12/06 12:36 Order name: Magnesium; Complete Time: 14:16 pm12/06 12:36 Order name: NT PRO-BNP; Complete Time: 14:16 pm12/06 12:36 Order name: PT-INR; Complete Time: 13:47 pm12/06 12:36 Order name: Ptt, Activated; Complete Time: 13:47 pm12/06 12:36 Order name: Troponin (emerg Dept Use Only); Complete Time: 14:16 pm12/06 12:36 Order name: XRAY Chest (1 view); Complete Time: 13:33 pm12/06 12:36 Order name: EKG; Complete Time: 12:37 pm12/06 12:37 Order name: Basic Metabolic Panel; Complete Time: 14:16 EDMS 12/06 14:18 Order name: CT Chest Wo Con; Complete Time: 15:18 pm12/06 12:36 Order name: Cardiac monitoring; Complete Time: 12:47 pm12/06 12:36 Order name: EKG - Nurse/Tech; Complete Time: 12:47 pm12/06 12:36 Order name: IV Saline Lock; Complete Time: 13:14 pm12/06 12:36 Order name: Labs collected and sent; Complete Time: 13:14 pm12/06 12:36 Order name: O2 Per Protocol; Complete Time: 12:47 pm12/06 12:36 Order name: O2 Sat Monitoring; Complete Time: 12:47 pm1 Administered Medications: No medications were administered Disposition: 16:42 Co-signature as Attending Physician, Marvin Ch MD. rn Disposition: 12/06/17 15:24 Discharged to Home. Impression: Palpitations, Strain of muscle and tendon of back wall of thorax. - Condition is Stable. - Discharge Instructions: Muscle Strain, Palpitations. - Medication Reconciliation Form, Thank You Letter, Antibiotic Education, Prescription Opioid Use form. - Follow up: Emergency Department; When: As needed; Reason: Worsening of condition. Follow up: Private Physician; When: 2 - 3 days; Reason: Recheck today's complaints, Continuance of care, Re-evaluation by your physician. - Problem is new. - Symptoms have improved. Signatures: Dispatcher [employer] EDNargis Koehler RN RN aj1 Karie Nettles RN RN iw Nieto, Roman, MD MD rn Marinas, Patrick, SINA SHOULDER BONER pm1 Corrections: (The following items were deleted from the chart) 15:30 15:24 12/06/2017 15:24 Discharged to Home. Impression: Palpitations. Condition is pm1 Stable. Forms are Medication Reconciliation Form, Thank You Letter, Antibiotic Education, Prescription Opioid Use. Follow up: Emergency Department; When: As needed; Reason: Worsening of condition. Follow up: Private Physician; When: 2 - 3 days; Reason: Recheck today's complaints, Continuance of care, Re-evaluation by your physician. Problem is new. Symptoms have improved. pm1 15:44 15:30 12/06/2017 15:24 Discharged to Home. Impression: Palpitations; Strain of muscle aj1 and tendon of back wall of thorax. Condition is Stable. Discharge Instructions: Palpitations. Forms are Medication Reconciliation Form, Thank You Letter, Antibiotic Education, Prescription Opioid Use. Follow up: Emergency Department; When: As needed; Reason: Worsening of condition. Follow up: Private Physician; When: 2 - 3 days; Reason: Recheck today's complaints, Continuance of care, Re-evaluation by your physician. Problem is new. Symptoms have improved. pm1
--- NOTE | 2017-12-06 15:24 | ER ---
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 Transition of care: patient was not received from another setting of care. Onset of symptoms was December 04, 2017. Risk Assessment: Do you want to hurt yourself or someone else? Patient reports no desire to harm self or others. Initial Sepsis Screen: Does the patient meet any 2 criteria? No. Patient's initial sepsis screen is negative. Does the patient have a suspected source of infection? No. Patient's initial sepsis screen is negative. Care prior to arrival: None. 12:20 Method Of Arrival: EMS: [facility] iw 12:20 Acuity: HILARY 3 iw Triage Assessment: 12:20 General: Appears in no apparent distress. comfortable, Behavior is calm, cooperative, aj1 appropriate for age. Pain: Complains of pain in left subscapular area Pain does not radiate. Pain currently is 4 out of 10 on a pain scale. Pain began 2-3 days ago. Alleviated by applying pressure Aggravated by nothing. Cardiovascular: Patient's skin is warm and dry. Historical: - Allergies: 12:23 Iodine; iw 12:23 Wasps; iw - Home Meds: 12:32 acyclovir 200 mg Oral cap 2 caps 2 times per day [Active]; cyanocobalamin (vitamin aj1 B-12) 1,000 mcg Oral tab daily [Active]; diclofenac sodium 75 mg Oral TbEC 1 tab 2 times per day [Active]; gabapentin 400 mg Oral cap 1 cap 3 times per day [Active]; triamterene-hydrochlorothiazid 37.5-25 mg Oral tab 1 tab once daily [Active]; levothyroxine 100 mcg tab 1 tab once daily [Active]; sildenafil 50mg Oral 1 tab once daily [Active]; simvastatin 20 mg Oral tab 1 tab once daily [Active]; ascorbic acid (vitamin C) 500 mg TbER daily [Active]; methylprednisolone 4 mg Oral DsPk [Active]; Vitamin D3 3000 units oral tab daily [Active]; - PMHx: 12:23 Hyperlipidemia; Hypertension; neck pain; iw 12:32 bradycardia; vitamin b12 deficiency; carpal tunnel; seborrhetic dermatitis; lumbar aj1 radiculopathy; lumbosacral spondylosis; right inguinal hernia; low back pain; rosacea; arthralgia; varicose veins; osteoarthritis; familial hypoalipopprotienemia; Hypothyroidism; - PSHx: 12:23 back; fatty tumor removed from back of neck.; iw - Immunization history:: Flu vaccine is up to date. - Ebola Screening: : No symptoms or risks identified at this time. Screenin:20 Abuse screen: Denies threats or abuse. Denies injuries from another. Nutritional aj1 screening: No deficits noted. Tuberculosis screening: No symptoms or risk factors identified. 15:43 Fall Risk None identified. aj1 Assessment: 12:20 General: Appears in no apparent distress. comfortable, Behavior is calm, cooperative, aj1 appropriate for age. 12:20 Pain: Complains of pain in left subscapular area Pain currently is 4 out of 10 on a aj1 pain scale. Quality of pain is described as patient is unable to describe quality of his pain Pain began 2-3 days ago. Pain: Pain does not radiate. Neuro: Level of Consciousness is awake, alert, obeys commands, Oriented to person, place, time, situation, Shake Backboard Notcher are equal bilaterally Speech is normal, Reports dizziness and difficulty walking one week ago, that has since resolved. Cardiovascular: Reports palpitations, Denies chest pain, shortness of breath, syncope, vomiting, Heart tones S1 S2 present Patient's skin is warm and dry. Rhythm is sinus bradycardia Chest pain is denied. Respiratory: Airway is patent Respiratory effort is even, unlabored, Respiratory pattern is regular, symmetrical, Breath sounds are clear bilaterally. Denies shortness of breath. GI: No signs and/or symptoms were reported involving the gastrointestinal system. : No signs and/or symptoms were reported regarding the genitourinary system. EENT: No signs and/or symptoms were reported regarding the EENT system. Derm: No signs and/or symptoms reported regarding the dermatologic system. Skin is pink, warm \T\ dry. normal. Musculoskeletal: Range of motion: intact in all extremities. 13:15 Reassessment: Patient appears in no apparent distress at this time. No changes from aj1 previously documented assessment. Patient and/or family updated on plan of care and expected duration. Pain level reassessed. Patient is alert, oriented x 3, equal unlabored respirations, skin warm/dry/pink. 14:49 Reassessment: Patient and/or family updated on plan of care and expected duration. Pain aj1 level reassessed. Reassessment: Patient returned to room from CT. General: Appears in no apparent distress. comfortable, Behavior is calm, cooperative, appropriate for age. Neuro: Level of Consciousness is awake, alert, obeys commands, Speech is normal. Cardiovascular: Patient's skin is warm and dry. Rhythm is sinus bradycardia. Respiratory: Airway is patent Respiratory effort is even, unlabored, Respiratory pattern is regular, symmetrical. 15:43 Reassessment: Patient appears in no apparent distress at this time. No changes from aj1 previously documented assessment. Patient and/or family updated on plan of care and expected duration. Pain level reassessed. Patient is alert, oriented x 3, equal unlabored respirations, skin warm/dry/pink. Vital Signs: 12:20 BP 135 / 76; Pulse 50; Resp 14; Temp 97.6(O); Pulse Ox 99% on R/A; Weight 102.06 kg aj1 (R); Height 6 ft. 1 in. (185.42 cm) (R); Pain 4/10; 13:15 BP 117 / 80; Pulse 47; Resp 20; Pulse Ox 97% on R/A; aj1 14:49 BP 150 / 76; Pulse 51; Resp 20; Pulse Ox 100% on R/A; aj1 15:43 BP 127 / 65; Pulse 52; Resp 18; Pulse Ox 99% ; aj1 12:20 Body Mass Index 29.69 (102.06 kg, 185.42 cm) 1 ED Course: 12:12 Patient arrived in ED. ds1 12:17 Tonny Peraza NP is PHCP. pm1 12:17 Marvin Ch MD is Attending Physician. pm1 12:20 Arm band placed on. aj1 12:20 Patient has correct armband on for positive identification. Bed in low position. Call aj1 light in reach. Side rails up X 1. monitor tech on. Pulse ox on. NIBP on. 12:20 No provider procedures requiring assistance completed. Patient maintains SpO2 aj1 saturation greater than 95% on room air. 12:22 Triage completed. iw 12:26 Nargis Tidwell, RN is Primary Nurse. aj1 12:51 EKG done, by boiler control technician. reviewed by Tonny Peraza NP. dt2 13:05 XRAY Chest (1 view) In Process Unspecified. EDMS 13:15 Initial lab(s) drawn, by me, sent to lab. Inserted saline lock: 18 gauge 24 gauge aj1 antecubital area, using aseptic technique. Blood collected. 14:43 CT completed. Patient tolerated procedure well. Patient moved to CT via wheelchair. jg6 Patient moved back from CT. 14:45 CT Chest Wo Con In Process Unspecified. EDMS 15:43 IV discontinued, intact, bleeding controlled, No redness/swelling at site. Pressure aj1 dressing applied. Administered Medications: No medications were administered Outcome: 15:24 Discharge ordered by MD. pm1 15:43 Discharged to home ambulatory, with family. aj1 15:43 Condition: good 15:43 Discharge instructions given to patient, Instructed on discharge instructions, follow up and referral plans. Demonstrated understanding of instructions, follow-up care. 15:44 Patient left the ED. aj1 Signatures: Dispatcher [employer] EDNargis Koehler, RN RN aj1 Megan Marti ds1 Karie Nettles RN RN iw Tonny Peraza NP LINOLEUM FLOOR LAYER pm1 Ronit Haley dt2 Ekaterina Pollock jg6 Corrections: (The following items were deleted from the chart) 12:42 12:38 BP 135 / 76; Pulse 50bpm; Resp 14bpm; Pulse Ox 99% RA; Temp 97.6F Oral; 102.06 kg aj1 Reported; Height 6 ft. 1 in. Reported; BMI: 29.6; Pain 4/10; aj1
--- NOTE | 2017-12-06 16:15 | EKG ---
Test Date: 2017-12-06 Test Time: 12:37:48 Stamping Mill Tender: ANTONI MEASUREMENT RESULTS: Intervals: Rate: 50 WA: 222 QRSD: 86 QT: 430 QTc: 392 [place]: P: 31 WA: 222 QRS: -9 T: 67 INTERPRETIVE STATEMENTS: Sinus bradycardia with 1st degree AV block Inferior infarct, age undetermined Abnormal ECG Compared to ECG 11/27/2017 09:47:28 No significant changes Electronically Signed On 12-06-17 16:14:24 CDT by Jason Thao
== END 2017-12-06 15:44 | disposition home or self-care (01) ==
LOC: ER 12:12
DX: R00.2 Palpitations (principal); S29.012A Strain of muscle and tendon of back wall of thorax, initial encounter; I10 Essential (primary) hypertension; E78.5 Hyperlipidemia, unspecified; X58.XXXA Exposure to other specified factors, initial encounter; Z91.038 Other insect allergy status; Z91.048 Other nonmedicinal substance allergy status
CPT/HCPCS: 36415; 71045; 71250; 80048; 80076; 82550; 82553; 83735; 83880; 84484; 85025; 85610; 85730; 93005; 99285